=== PATIENT | female | born 2000 | race Caucasian/White ===

== ENCOUNTER 2024-06-11 21:02 | Emergency (ER) | payer OTHER, SELFPAY ==
--- NOTE | ~2024-06-11 | US_ITS ---
CLINICAL HISTORY: ovarian cyst, r o torsion US pelvis transabdominal and transvaginal Comparison: CT/SR - CT ABDOMEN PELVIS W IV CON - 06/12/24 00:44 EDT Findings: Transabdominal scanning performed for overall anatomy. Transvaginal scanning performed for additional detail. Retroverted uterus is 9.4 cm length. Normal myometrium. Endometrium 6 mm thickness. Scattered nabothian cysts. Right ovary 5.7 x 4.9 x 4.1 cm. Heterogeneous echogenic cyst, essentially avascular in keeping with ovarian dermoid better appreciated on prior CT. There is adjacent right adnexal free fluid suggesting rupture. Left ovary 5.1 x 2.1 x 2.5 cm. Question heterogeneous mildly complex left ovarian cyst measuring 2.4 x 1.9 x 1.5 cm may reflect a corpus luteum cyst. Normal color Doppler of both ovaries. Dilated left adnexal vasculature can be seen with pelvic congestion syndrome, should be correlated clinically. No free fluid. IMPRESSION: No evidence of torsion. Likely ruptured right ovarian dermoid with adjacent free fluid. Question left pelvic congestion syndrome, should be correlated clinically. This document has been electronically signed by: Eagle Venegas MD on 06/12/2024 05:27:05
--- NOTE | ~2024-06-11 | CT_ITS ---
CLINICAL HISTORY: pain, appy? CT abdomen and pelvis with contrast Comparison: None Findings: No consolidation or effusion. Hepatomegaly with steatosis. Distended stomach. No bowel obstruction. Fat containing umbilical hernia. Right ovarian dermoid with macroscopic fat heterogeneous soft tissue and calcifications, measuring 3.7 cm. Normal appendix. Scattered colonic diverticulosis without diverticulitis or colitis. Retroverted uterus. No acute fracture. Postcholecystectomy. IMPRESSION: 1. Normal appendix. 2. 3.7 cm right ovarian dermoid. This may be further evaluated with ultrasound. This document has been electronically signed by: Eagle Venegas MD on 06/12/2024 01:50:17
[2024-06-11 21:06] VITALS: BP 154/83; PULSE 100; RESP 18; TEMP 36.3; O2SAT 98; BMI 39.6
[2024-06-11 21:25] LABS: Hematocrit 40.4 % (37.0-47.0); Hemoglobin 13.6 g/dl (12.0-16.0); Mean Corpuscular HGB Conc 33.7 g/dl (31.0-35.0); Mean Corpuscular Hemoglobin 27.5 pg (27.0-33.0); Mean Corpuscular Volume 81.8 fL (80.0-98.0); Mean Platelet Volume 9.4 fL (9.4-12.3); Platelet Count 425 X10*3/uL (160-400); Red Blood Count 4.94 X10*6/uL (4.20-5.50); White Blood Count 15.3 X10*3/uL (4.8-10.8)
[2024-06-11 21:37] LABS: Alanine Aminotransferase 29 U/L (0-31); Albumin Level 4.2 g/dL (3.5-5.0); Alkaline Phosphatase 88 U/L (39-117); Anion Gap 13 (12-20); Aspartate Amino Transferase 22 U/L (5-31); Bilirubin Total 0.4 mg/dL (0.0-1.0); Blood Urea Nitrogen 10 mg/dL (9-16); Calcium 9.6 mg/dL (8.4-10.2); Carbon Dioxide 22 mmol/L (22-29); Chloride 110 mmol/L (96-108); Creatinine Clr Calc Pharmacy 131.2; Estimated Glomerular Filt Rate > 60; Glucose Random 110 mg/dL (60-115); Lipase 25 U/L (8-78); Potassium 3.6 mmol/L (3.3-5.1); Sodium 141 mmol/L (135-145); Total Protein 7.9 g/dL (6.5-8.0)
[2024-06-11 21:51] LABS: Atypical Lymph Absolute Manual 1.4 x10*3/uL; Atypical Lymphs Percent Manual 9 % (0-6); Band Neutrophils Percent 1 % (3-5); Lymphocytes Absolute Manual 6.3 X10*3/uL (1.2-4.9); Lymphocytes Percent Manual 41 % (20-40); Monocytes Absolute Manual 0.8 X10*3/uL (0.1-1.2); Monocytes Percent Manual 5 % (2-11); Neutrophils Absolute Manual 6.9 X10*3/uL (2.0-8.3); Neutrophils Percent Manual 44 % (45-73)
[2024-06-11 21:52] LABS: Platelet Estimate NORMAL (NORMAL); Platelet Morphology Comment NORMAL; RBC Morphology NORMAL; Toxic Vacuolation PRESENT
[2024-06-11 22:53] VITALS: BP 137/85; PULSE 89; RESP 18; TEMP 36.6; O2SAT 99
[2024-06-11 23:12] LABS: Appearance Urine Clear; Color Urine Yellow; Glucose Urine UA Negative (Negative); Leukocyte Esterase Urine Negative (Negative); Nitrite Urine Negative (Negative); Specific Gravity - Urine 1.025 (1.005-1.025); Urine Blood Negative (Negative); Urine Ketones Trace mg/dL (Negative); Urine Protein Negative (Neg-Trace)
[2024-06-11 23:13] LABS: UPreg QC Valid YES; Urine Pregnancy NEGATIVE (NEGATIVE)
[2024-06-11 23:15] LABS: Bacteria Urine 1+ (None Seen); Hyaline Casts Urine 0-2 /LPF (0-2); RBC Urine 0-2 /HPF (0-2); WBC Urine 0-5 /HPF (0-5)
[2024-06-12 00:06] VITALS: BP 120/62; PULSE 85; RESP 16; TEMP 37; O2SAT 97
[2024-06-12] MEDS: 0.9 % Sodium Chloride 1,000 ML 999 ML IV (00:41)
[2024-06-12] MEDS: ondansetron HCL 4 MG/2 ML VIAL IVPUSH ×2 (00:41→07:25)
[2024-06-12] MEDS: Ketorolac Tromethamine 15 MG/ML VIAL IVPUSH (00:41)
[2024-06-12] MEDS: iohexoL 350 MG/ML 100 ML INFUS..BTL 85 ML IV (00:53)
--- NOTE | 2024-06-12 02:05 | ED_ITS ---
HPI - General Adult General Chief complaint: Abdominal Pain Stated complaint: right back, stomach pain, nausea Time Seen by Provider: 06/11/24 23:28 Source: patient Limitations: no limitations History of Present Illness ED Provider: Ene Payne PA-C HPI narrative: 23-year-old female with a history of morbid obesity presents with the abdominal pain x1 day. Pain over mid to right abdomen, unable to describe the nature of her discomfort. Pain worse with movement and palpation of the abdomen. Associated nausea and diarrhea. Denies dysuria, new vaginal discharge or risk for STD. Denies history of kidney stones. Denies known ovarian cysts on the right, she states she has had on the left. Related Data Previous Rx's ?Medication ?Instructions ?Recorded morphine 15 mg immediate release 15 mg PO Q8H PRN pain #10 tabs 06/12/24 tablet ondansetron 4 mg disintegrating 4 mg PO Q6-8H PRN nausea and 06/12/24 tablet vomiting #14 tabs Allergies Allergy/AdvReac Type Severity Reaction Status Date / Time No Known Allergies Allergy Verified 06/11/24 21:08 Review of Systems 2 Review of Systems: Yes all other systems are reviewed and are negative Constitutional: Constitutional: Denies fatigue and Denies fever(s) Cardiovascular: Cardiovascular: Denies chest pain and Denies dyspnea Respiratory: Respiratory: Denies cough and Denies dyspnea Gastrointestinal: Gastrointestinal: Reports abdominal pain, Denies constipation, Reports diarrhea, Reports nausea and Denies vomiting Genitourinary: Genitourinary: Denies hematuria, Denies dysuria, Denies pelvic pain, Denies flank pain and Denies vaginal discharge Endocrine: Endocrine: Denies fatigue PMFSH Past Medical History Attestation statement: The following information was validated with the patient. Physical Exam ED Vital Signs: Vital Signs - 24 hr 06/11/24 21:06 06/11/24 22:53 06/12/24 00:06 Temperature 97.3 F 97.9 F 98.6 F Pulse Rate 100 89 85 Respiratory Rate 18 18 16 Blood Pressure 154/83 H 137/85 120/62 Pulse Oximetry 98 99 97 Oxygen Delivery Method Room Air Room Air Room Air 06/12/24 02:23 06/12/24 05:48 Temperature 98.2 F 97.7 F Pulse Rate 72 66 Respiratory Rate 16 16 Blood Pressure 106/58 L 103/53 L Pulse Oximetry 97 99 Oxygen Delivery Method Room Air Room Air BMI result Body Mass Index 39.6 Const Other: Alert well-appearing Orientation/consciousness: patient oriented x3 Resp Effort & Inspection: normal respiratory effort Cardio Other: Normal peripheral perfusion GI Other: Abdomen is soft, nondistended, obese, tender over suprapubic and right lower quadrant with a mild involuntary guarding Skin Other: Warm dry no rash Neuro General: patient oriented x3, gait normal, no focal motor deficits and CN's II- XI intact bilaterally Psych Other: Cooperative Course Course Course Narrative: Signed out to night team pending results of transvaginal ultrasound and final disposition. 06/12/2024 at 07:15 hours,Dr. Greg Dwyer's note: I assumed care of this patient from my colleague, physician assistant nurse manager Ene Payne at 04:00 hours, pending the patient's duplex pelvic ultrasound to rule out torsion. Patient told me that she had sudden onset of right lower quadrant pain which occurred 24 hours prior to coming to the emergency department. Patient states she was still having right-sided abdominal pain which was not relieved with Toradol 15 mg IV and diazepam 2.5 mg IV. Patient did received Zofran 4 mg IV she states that this did give her some relief of her nausea with the nausea is coming back. Patient was ordered to get morphine 4 mg IV and Zofran 4 mg IV for persistent pain and nausea. Ultrasound did not reveal any torsion but the patient does have evidence of a an avascular heterogeneous echogenic cyst on the right consistent with a an ovarian dermoid with adjacent adnexal free fluid suggesting that the patient had a rupture. This is the most likely explains the patient's pain, I did discuss this with her. Patient also has a 2.4 x 1.9 x 1.5 cm left ovarian cyst which may represent a corpus luteal cyst. The patient was discharged home with instructions to take Tylenol and ibuprofen for pain and for pain not relieved by these medications she was prescribed morphine 15 mg every 6 hours as needed. She was also given a prescription for Zofran 4 mg ODT every 6-8 hours as needed for nausea and vomiting. Patient was advised to follow up with our [facility] [employer] group for re-evaluation in 7-10 days. She was given printed and verbal instructions and discharged home. Medications Administered Discontinued Medications Generic Name Dose Route Start Last Admin Trade Name Freq PRN Reason Stop Dose Admin Diazepam 2.5 mg 06/12/24 02:34 06/12/24 02:48 Diazepam 10 Mg/2 Ml Cartridge IVPUSH 06/12/24 02:35 2.5 mg STAT STA Administration Sodium Chloride 1,000 mls @ 999 mls/hr 06/12/24 00:30 06/12/24 02:01 Ns IV 06/12/24 01:30 Infused .Q1H1M MARISSA Infusion Iohexol 85 ml 06/12/24 00:52 06/12/24 00:53 Iohexol 350 Mg/Ml 100 Ml Infus..Btl IV 06/12/24 00:53 85 ml ONCE ONE Administration Ketorolac Tromethamine 15 mg 06/12/24 00:22 06/12/24 00:41 Ketorolac Tromethamine 15 Mg/Ml Vial IVPUSH 06/12/24 00:23 15 mg ONCE ONE Administration Morphine Sulfate 4 mg 06/12/24 07:13 06/12/24 07:25 Morphine Sulfate 4 Mg/Ml Cartridge IVPUSH 06/12/24 07:14 4 mg ONCE STA Administration Protocol Ondansetron HCl 4 mg 06/12/24 00:23 06/12/24 00:41 Ondansetron Hcl 4 Mg/2 Ml Vial IVPUSH 06/12/24 00:24 4 mg ONCE ONE Administration Ondansetron HCl 4 mg 06/12/24 07:13 06/12/24 07:25 Ondansetron Hcl 4 Mg/2 Ml Vial IVPUSH 06/12/24 07:14 4 mg ONCE ONE Administration Medical Decision Making Medical Decision Making MDM Narrative: 23-year-old female with a history of morbid obesity presents with the abdominal pain x1 day. Pain over mid to right abdomen, unable to describe the nature of her discomfort. Pain worse with movement and palpation of the abdomen. Associated nausea and diarrhea. Denies dysuria, new vaginal discharge or risk for STD. Denies history of kidney stones. Denies known ovarian cysts on the right, she states she has had on the left. Problem: Morbid obesity History: Per patient I have considered the following differential diagnoses: Appendicitis, torsion, UTI, gynecological pathology, sigmoid diverticulitis Plan: Given distribution of discomfort, I am considering appendicitis. We will be obtaining a CT scan, giving IV fluid Toradol and Zofran for her discomfort. Screening labs were already obtained from triage. She has a slight leukocytosis. Also considering torsion, she has a history of ovarian cysts, however she states she has only had them on the left, if there was any concern on CT scan, she will have a transvaginal ultrasound. She has no vaginal discharge or risk for STD, gynecological pathology in the way of a TOA or PID are least likely. Given concurrent diarrhea, this could be sigmoid diverticulitis. I have independently reviewed the following tests: Labs: Leukocytosis, not anemic, thrombocytosis noted, no electrolyte abnormality, not , urine not infected CT abdomen and pelvis:IMPRESSION: 1. Normal appendix. 2. 3.7 cm right ovarian dermoid. This may be further evaluated with ultrasound. Given the small size of the cyst, the patient can follow up as an outpatient for further assessment with her own county director welfare. Lab Data 06/11/24 21:17 06/11/24 21:17 Labs: Lab Results 06/11/24 06/11/24 Range/Units 21:17 23:02 WBC 15.3 H (4.8-10.8) X10*3/uL RBC 4.94 (4.20-5.50) X10*6/uL Hgb 13.6 (12.0-16.0) g/dl Hct 40.4 (37.0-47.0) % MCV 81.8 (80.0-98.0) fL MCH 27.5 (27.0-33.0) pg MCHC 33.7 (31.0-35.0) g/dl RDW 14.0 (11.0-16.0) % Plt Count 425 H (160-400) X10*3/uL MPV 9.4 (9.4-12.3) fL Immature Gran % (Auto) Cancelled Neut % (Auto) Cancelled Lymph % (Auto) Cancelled [place] % (Auto) Cancelled Eos % (Auto) Cancelled Baso % (Auto) Cancelled Lymph # (Auto) Cancelled [place] # (Auto) Cancelled Eos # (Auto) Cancelled Baso # (Auto) Cancelled Abs Immat Gran (auto) Cancelled Absolute Neuts (auto) Cancelled Absolute Nucleated RBC 0.000 (0.0-0.012) X10*3/uL Nucleated RBC % (auto) 0.0 (0.0-0.2) /100WBC Neutrophils % (Manual) 44 L (45-73) % Band Neutrophils % 1 L (3-5) % Lymphocytes % (Manual) 41 H (20-40) % Atypical Lymphs % (Man) 9 H (0-6) % Monocytes % (Manual) 5 (2-11) % Abs Neuts (Manual) 6.9 (2.0-8.3) X10*3/uL Lymphocytes # (Manual) 6.3 H (1.2-4.9) X10*3/uL Atyp Lymphs # (Manual) 1.4 x10*3/uL Monocytes # (Manual) 0.8 (0.1-1.2) X10*3/uL Toxic Vacuolation PRESENT Platelet Estimate NORMAL (NORMAL) Plt Morphology Comment NORMAL RBC Morphology NORMAL Sodium 141 (135-145) mmol/L Potassium 3.6 (3.3-5.1) mmol/L Chloride 110 H (96-108) mmol/L Carbon Dioxide 22 (22-29) mmol/L Anion Gap 13 (12-20) BUN 10 (9-16) mg/dL Creatinine 0.77 (0.5-1.4) mg/dL Estim Creat Clear Calc 131.2 Estimated GFR > 60 Random Glucose 110 (60-115) mg/dL Calcium 9.6 (8.4-10.2) mg/dL Total Bilirubin 0.4 (0.0-1.0) mg/dL AST 22 (5-31) U/L ALT 29 (0-31) U/L Alkaline Phosphatase 88 (39-117) U/L Total Protein 7.9 (6.5-8.0) g/dL Albumin 4.2 (3.5-5.0) g/dL Lipase 25 (8-78) U/L Urine Color Yellow Urine Appearance Clear Urine pH 6.0 (5.0-9.0) Ur Specific [place] 1.025 (1.005-1.025) Urine Protein Negative (Neg-Trace) mg/dL Urine Glucose (UA) Negative (Negative) mg/dL Urine Ketones Trace (Negative) mg/dL Urine Blood Negative (Negative) Urine Nitrite Negative (Negative) Ur Leukocyte Esterase Negative (Negative) Urine RBC 0-2 (0-2) /HPF Urine WBC 0-5 (0-5) /HPF Ur Squamous Epith Cells 6-10 (0-2) /HPF Urine Bacteria 1+ (None Seen) Hyaline Casts 0-2 (0-2) /LPF Urine Test NEGATIVE (NEGATIVE) Radiology Impression Discussion of test interpretation with radiology: I have reviewed the radiologist's reading. Radiologist Impression: US pelvis transabdominal and transvaginal Comparison: CT/SR - CT ABDOMEN PELVIS W IV CON - 06/12/24 00:44 EDT Findings: Transabdominal scanning performed for overall anatomy. Transvaginal scanning performed for additional detail. Retroverted uterus is 9.4 cm length. Normal myometrium. Endometrium 6 mm thickness. Scattered nabothian cysts. Right ovary 5.7 x 4.9 x 4.1 cm. Heterogeneous echogenic cyst, essentially avascular in keeping with ovarian dermoid better appreciated on prior CT. There is adjacent right adnexal free fluid suggesting rupture. Left ovary 5.1 x 2.1 x 2.5 cm. Question heterogeneous mildly complex left ovarian cyst measuring 2.4 x 1.9 x 1.5 cm may reflect a corpus luteum cyst. Normal color Doppler of both ovaries. Dilated left adnexal vasculature can be seen with pelvic congestion syndrome, should be correlated clinically. No free fluid. IMPRESSION: No evidence of torsion. Likely ruptured right ovarian dermoid with adjacent free fluid. Question left pelvic congestion syndrome, should be correlated clinically. This document has been electronically signed by: Eagle Venegas MD on 06/12/2024 05:27:05 Discharge Plan Discharge Clinical Impression: Abdominal pain, Dermoid cyst of right ovary, Rupture of cyst of right ovary, Cyst of left ovary Patient Disposition: Home, Self-Care Additional Instructions: Your blood work did reveal an elevated white blood cell count otherwise was unremarkable. This can sometimes be caused by pain, inflammation or infection. Your urinalysis was negative. Your test was negative as well. The CT scan of your abdomen pelvis revealed a appendix but you did have a 3.7 cm right ovarian dermoid cyst. The duplex ultrasound of your abdomen pelvis did not reveal any twisting (torsion) of your ovaries which is reassuring. The radiologist felt that the right ovarian cyst did rupture since there was fluid around the ovary and a ruptured cyst would explain the sudden onset of your pain and the continuing pain that your experiencing. Ruptured cysts are usually not operated on in are treated with pain medications and should get better over time. The radiology also noted that you have a cyst on your left ovary. Take ibuprofen 200 mg pills, 2 pills every 6 hours as needed for pain. Take Tylenol (acetaminophen) 2 pills every 6 hours as needed for pain. For pain not relieved by ibuprofen or Tylenol take morphine 15 mg pills, 1 pill every 6 hours as needed for pain. This medication will make you sleepy, do not drive or work while taking this medication. Take Zofran ODT 4 mg pills, 1 pill dissolved in your mouth every 8 hours as needed for nausea and vomiting. Morphine is a narcotic medication and can be addicting. If you are concerned about addiction you can ask the pharmacist for less pills or do not get this prescription filled. Follow-up with our news technical director group (Dr. Deutsch) in 7-10 days. Please call the office today or tomorrow to make a follow-up appointment. Please return to the emergency department if your symptoms get worse or if you develop any symptoms that are concerning to you. Prescriptions: New morphine 15 mg tablet 15 mg PO Q8H PRN (Reason: pain) Qty: 10 0RF Rx Instructions: Partial Fill upon patient request. ondansetron 4 mg tablet,disintegrating 4 mg PO Q6-8H PRN (Reason: nausea and vomiting) Qty: 14 0RF Interventions: ED Discharge Assessment Last Done: 06/12/24 07:27 Discharge Date/Time: 06/12/24 07:44 Print Language: Syriac
[2024-06-12 02:23] VITALS: BP 106/58; PULSE 72; RESP 16; TEMP 36.8; O2SAT 97
[2024-06-12] MEDS: diazePAM 10 MG/2 ML CARTRIDGE 2.5 MG IVPUSH (02:48)
[2024-06-12 05:48] VITALS: BP 103/53; PULSE 66; RESP 16; TEMP 36.5; O2SAT 99
--- NOTE | 2024-06-12 06:30 | PC.NURSE ---
20g RAC. pt reporting some vaginal bleeding after U/S
[2024-06-12] MEDS: Morphine Sulfate 4 MG/ML CARTRIDGE IVPUSH (07:25)
[2024-06-12 07:27] VITALS: BP 103/53; PULSE 66; RESP 16; TEMP 36.5; O2SAT 99
== END 2024-06-12 07:44 | disposition home or self-care (01) ==
PROVIDERS: Emergency Provider Emergency Medicine
DX: D27.0 Benign neoplasm of right ovary (principal); N83.202 Unspecified ovarian cyst, left side; R10.31 Right lower quadrant pain
CPT/HCPCS: 36415; 74177; 76830; 76856; 80053; 81001; 81025; 83690; 85007; 85027; 93975; 96361; 96374; 96375; 96376; 99285; J1885; J2270; J2405; J3360; Q9967

== ENCOUNTER → 2024-06-12 00:22 | Outpatient (BNV) | payer MEDICAID, SELFPAY | PROVIDERS: Emergency Provider Emergency Medicine; Visit Provider Radiology Diagnostic Radiology | DX: D27.0 Benign neoplasm of right ovary (principal) | CPT/HCPCS: 74177; 76830; 76856; 93975 ==